=== PATIENT | male | born 1980 | race African-American/Black ===

== ENCOUNTER 2017-02-14 18:18 | Emergency (ER) | payer OTHER, SELFPAY ==
[2017-02-14 20:11] LABS: Bilirubin Negative (Negative); Blood, Urine Trace (Negative); Clarity Clear (Clear); Glucose, Urine (Dipstick) Negative (Negative); Leukocyte Negative (Negative); Nitrite Negative (Negative); Protein, Urine (Dipstick) Negative (Neg-Trace); Urobilinogen 0.2 mg/dL (0.2-1.0); pH, Urine 7.5 (5.0-9.0)
[2017-02-14 20:12] LABS: Bacteria/HPF None Seen HPF (None Seen); WBC/HPF 0-3 HPF (0-3)
[2017-02-14] MEDS ORDERED: Naproxen 500 MG TAB ONE (20:29)
[2017-02-14] MEDS ORDERED: HYDROcodone/Acetaminophen 10/325 mg Tablet ONE (20:29)
[2017-02-14] MEDS ORDERED: Diazepam 5 MG TAB ONE (20:29)
== END 2017-02-14 20:32 | disposition home or self-care (01) ==
LOC: MADERS 18:18
DX: M62.838 Other muscle spasm (principal)
CPT/HCPCS: 81001; 87086; 99284

== ENCOUNTER 2019-09-25 13:31 | Emergency (ER) | payer SELFPAY | END 2019-09-25 16:19 | disposition home or self-care (01) | LOC: MADERS 13:31 | DX: J10.1 Influenza due to other identified influenza virus with other respiratory manifestations (principal) | CPT/HCPCS: 87804; 99283 ==

== ENCOUNTER 2019-10-07 13:19 | Outpatient (CLI) | payer OTHER ==
[2019-10-07 13:47] LABS: #Basophils 0.1 thou/uL (0.0-0.2); #Eosinphils 0.1 thou/uL (0.0-0.7); #Lymphocytes 2.9 thou/uL (1.20-3.40); #Monocytes 0.7 thou/uL (0.11-0.59); #Neutrophils 6.1 thou/uL (1.40-6.50); %Basophils 1.4 % (0.0-1.0); %Eosinophils 1.1 % (0.0-10.0); %Lymphocytes 28.8 % (21.0-51.0); %Monocytes 7.2 % (0.0-10.0); %Neutrophils 61.6 % (42.0-75.0); Hemoglobin 14.5 g/dL (14.0-18.0); Mean Corpuscular Hemoglobin 29.3 pg (27.0-31.0); Mean Corpuscular Volume 94.6 fL (78.0-98.0); Mean Platelet Volume 6.8 fL (7.4-10.4); Platelet Count 553 thou/uL (130-400); RBC Distribution Width 11.4 % (11.5-14.5); Red Blood Cell (RBC) Count 4.96 mill/uL (4.70-6.10); White Blood Cell (WBC) Count 9.9 thou/uL (4.8-10.8)
[2019-10-07 14:09] LABS: ALT (SGPT) 48 U/L (8-55); AST (SGOT) 24 U/L (5-34); Albumin 4.5 g/dL (3.5-5.0); Alkaline Phosphatase 91 U/L (40-110); Anion Gap 15 mmol/L (10-20); BUN (Urea Nitrogen) 11 mg/dL (8.9-20.6); Bilirubin, Total 0.5 mg/dL (0.2-1.2); Calc. Creatinine Clearance 0 mL/min (70-130); Calcium 9.6 mg/dL (7.8-10.44); Carbon Dioxide 24 mmol/L (22-29); Cardiac Risk 6.5 (Less than 4.5); Chloride 105 mmol/L (98-107); Cholesterol 226 mg/dl (< 200 Desired); Estimated GFR-MDRD Greater than 90; Globulin 3.5 g/dL (2.4-3.5); Glucose 90 mg/dL (70-105); HDL Cholesterol 35 mg/dL (>60 Neg Risk); LDL Cholesterol, Calculated 118 mg/dL; Sodium 140 mmol/L (136-145); Triglycerides 363 mg/dL (Less than 150)
[2019-10-08 15:18] LABS: Hemoglobin A1c 5.7 % (4.0-6.0)
== END 2019-10-07 13:20 | disposition home or self-care (01) ==
LOC: MADLAB 13:19
PROVIDERS: ATTEND Family Medicine
DX: E66.9 Obesity, unspecified (principal)
CPT/HCPCS: 36415; 80053; 80061; 83036; 84443; 85025